=== PATIENT | male | born 1985 | race Two or more races ===

== ENCOUNTER 2021-08-28 04:15 | Emergency (ER) | payer MEDICAID, OTHER ==
[~2021-08-28] VITALS: Ht 177.8 cm; Wt 172.4 kg
[2021-08-28] MEDS ORDERED: MORPHINE SULFATE 4 MG/ML SYR/VIAL IV ONE (07:00)
[2021-08-28] MEDS ORDERED: ONDANSETRON HCL 4 MG/2 ML VIAL IV ONE (07:00)
[2021-08-28 07:44] VITALS: BP 154/94
[2021-08-28] MEDS ORDERED: IOHEXOL 300 MG/ML 100ML BOTTLE IJ ONE (08:23)
== END 2021-08-28 09:27 | disposition home or self-care (01) ==
LOC: ER 04:15
DX: M25.512 Pain in left shoulder (principal); M25.562 Pain in left knee; R10.9 Unspecified abdominal pain; M79.18 Myalgia, other site; I16.0 Hypertensive urgency; I10 Essential (primary) hypertension
CPT/HCPCS: 72125; 73030; 73562; 74177; 96374; 96375; 99285; J2270; J2405; Q9967